=== PATIENT | female | born 1980 | race Caucasian/White ===

== ENCOUNTER 2025-07-17 01:01 | Emergency (ER) | payer SELFPAY ==
[2025-07-17 01:04] VITALS: BP 170/90; PULSE 91; TEMP 36.5; O2SAT 100; BMI 22.9
--- NOTE | 2025-07-17 01:45 | XR_ITS ---
The [address] [address] Patient Name: CHUCHO CARNEY MRN: [id number] date: 1980 Sex: F Assigned Patient Location: ER Current Patient Location: Accession/Order Number: [id number] Exam Date: 07/17/2025 02:00 Report Date: 07/17/2025 07:46 At the request of: MILAGRO SUAREZ MD Procedure: XR acute abdomen series ACUTE ABDOMEN SERIES WITH PA CHEST: CLINICAL HISTORY: constipation, thinks she has parasites COMPARISON: None The chest film shows no acute cardiopulmonary findings. Supine and upright views of the abdomen and pelvis demonstrate the stomach. Air and mild to moderate stool are present along the length of the colon, greater on the right. There is no small bowel dilatation, free air or air-fluid levels. No soft tissue masses or abnormal calcifications are seen. There is mild degenerative change of the lower lumbar spine and SI joints. XR/XR acute abdomen series IMPRESSION: NO ACUTE PLAIN FILM FINDINGS. Impression dictated by: Radha Keating M.D. 07/17/2025 7:46 AM Dictation Location: [place] [address] Electronically authenticated by: [id number] Y Date: 07/17/2025 07:46
--- NOTE | 2025-07-17 01:47 | ED.SKABFB1 ---
HPI - Skin/Abscess/Foreign Bdy General Chief complaint: Skin/Abscess/Foreign Body Stated complaint: POSS PARASITE Time Seen by Provider: 07/17/25 01:02 Source: patient Mode of arrival: walk-in History of Present Illness HPI narrative: 44-year-old female presents for evaluation of worms . The patient thinks that she has worms in her hands and on her ankles. She states it itches and when she scratches and opens up her skin white worms and little black bugs crawl out of her skin. She thinks that she has eggs in the back of her throat. She states that she took an uvin-cis-iqqygwu pinworm medication recently but does not think it helped her. She is not having any rectal itching. She denies any abdominal pain. She does admit to cocaine use. She states that she was recently in halfway for 6 months. She also states that she feels like she has worms in her eyes and when she puts Vaseline under her nose the worms come out onto paper if she places it under her nose. She recently finished her menstrual period and there were worms in her menstrual blood as well. She denies any abdominal pain but states she has not had a bowel movement in 2 weeks. She has not traveled outside of the country in over 10 years. Related Data Home Medications ?Medication ?Instructions ?Recorded ?Confirmed losartan 25 mg tablet 25 mg PO DAILY 07/17/25 07/17/25 Allergies Allergy/AdvReac Type Severity Reaction Status Date / Time nitrofurantoin (From Allergy Unknown Swelling Verified 07/17/25 01:09 Macrobid) of Lip/Tongue/Throat Review of Systems ROS Status of ROS 10 or more systems reviewed and unremarkable except as noted in history and below PFSH PFSH Social History Little interest or pleasure in doing things: not at all Feeling down, depressed, or hopeless: not at all Exam Narrative Exam Narrative: Vital signs and Nursing Notes reviewed: Afebrile with a normal pulse, blood pressure is elevated 170/90, she is not hypoxic with pulse ox of 100% on room air General: Awake, alert, oriented, no acute distress, this female picking at her skin HEENT: Normocephalic atraumatic, mucous membranes are moist and pink, eyes are clear, normal conjunctiva, vision is grossly intact, posterior pharynx is normal in appearance without any notable abnormalities Neck: Supple, no meningeal signs, no anterior or posterior cervical lymphadenopathy Chest: Lungs are clear to auscultation with good air entry, there is no wheezing rhonchi or rales appreciated no accessory muscle use, patient is speaking in complete sentences-no chest wall tenderness to palpation CVS: Regular rate and rhythm S1-S2, no murmurs rubs or gallops, pulses are brisk and equal bilaterally ABD: Soft, nondistended, nontender, no rebound guarding or rigidity, bowel sounds are normal, no pulsatile masses appreciated Extremities: Moving all extremities, no lower extremity tenderness or swelling noted, negative Homans' sign, pulses are brisk and equal bilaterally Skin: Patient's hands do not show any sign of infestation. She has dry skin around her fingernails, her her fingernails are chewed the skin on her hands is dry. She has several sores on the medial aspect of her ankles from her picking. There is no sign of any local cellulitis or infestation noted. He is adamant that she has a large warm on the right thenar eminence that has a tail that wraps into her thumb. Again I explained to her that there is no sign of any warm or other insect or infestation in this area. Neuro: No focal deficits Constitutional Vital Signs, click to edit/add: Last Vital Signs Temp 97.7 F 07/17/25 01:04 Pulse 91 H 07/17/25 01:04 Resp 18 07/17/25 01:04 BP 170/90 H 07/17/25 01:04 Pulse Ox 100 07/17/25 01:04 O2 Del Method Room Air 07/17/25 01:04 Course Vital Signs Vital signs: Vital Signs Temperature 97.7 F 07/17/25 01:04 Pulse Rate 91 H 07/17/25 01:04 Respiratory Rate 18 07/17/25 01:04 Blood Pressure 170/90 H 07/17/25 01:04 Pulse Oximetry 100 07/17/25 01:04 Oxygen Delivery Method Room Air 07/17/25 01:04 Temperature 97.7 F 07/17/25 01:04 Pulse Rate 91 H 07/17/25 01:04 Respiratory Rate 18 07/17/25 01:04 Blood Pressure 170/90 H 07/17/25 01:04 Pulse Oximetry 100 07/17/25 01:04 Oxygen Delivery Method Room Air 07/17/25 01:04 MDM - Skin/Abscess/Foreign Bdy MDM Narrative Medical decision making narrative: This 44-year-old female with a history of substance abuse including cocaine presents for evaluation of the sensation that she has worms underneath her fingernails with worm eggs in her throat and worms in her hands and ankle areas. She also thinks there were worms in her menstrual blood after recently having her period. Her physical exam is benign. I did examine her skin with a magnifying glass. She does have open areas where she has been picking at her skin without any local cellulitis or sign of any infestation. There is no sign of any scabies. She is somewhat anxious but cooperative. She have any rectal itching or burning. She does not have any burning in her vagina. She has no abdominal pain but states she has been constipated for the past 2 weeks. She is not having any nausea or vomiting. Her abdomen is soft. Vital signs are stable with an elevated blood pressure at 170/90. An x-ray was ordered of her chest and abdomen. She has a nonspecific bowel gas pattern with no free air but moderate amount of stool consistent with constipation and a normal chest x-ray with normal mediastinum, no acute pulmonary disease and normal cardiac borders. Urine drug screen is positive for cocaine and marijuana. Also is positive for nitrites and 10-20 white blood cells per high-power field consistent with a UTI. I read her the definition of formication in which people you are using certain drugs or having certain psychiatric issues have the sensation of insects or bugs crawling under their skin. She verbalizes understanding of this. I suggested that she discontinue cocaine use as this would help resolve the symptoms. She states that if she discontinued cocaine use many of her issues would be resolved and seems open to this conversation. She will be treated with Cipro and hydroxyzine for the skin discomfort and UTI. She will be discharged home with a prescription for Colace, Cipro and hydroxyzine. Lab Data Labs: Lab Results 07/17/25 Range/Units 01:55 Urine Color Yellow (YELLOW) Urine Clarity Clear (CLEAR) Urine pH 5.5 (5.0-9.0) Ur Specific [place] >=1.030 A (1.005-1.025) Urine Protein Trace (NEG/TRACE) mg/dL Urine Glucose (UA) Negative (NEGATIVE) mg/dL Urine Ketones Trace A (NEGATIVE) mg/dL Urine Occult Blood Trace-i (NEGATIVE) Urine Nitrite Positive A (NEGATIVE) Urine Bilirubin Negative (NEGATIVE) Urine Urobilinogen 1.0 (0.2-1.0) EU/dL Ur Leukocyte Esterase Small A (NEGATIVE) Urine RBC 0-2 (0-2) #/HPF Urine WBC 10-20 A (NONE SEEN) #/HPF Ur Squamous Epith Cells Few A (NONE/RARE) #/LPF Urine Crystals None seen (None Seen) #/HPF Urine Bacteria Large A (NONE SEEN) #/HPF Urine Casts None seen (NONE SEEN) #/LPF Urine Mucus Large A (NONE SEEN) Ur Culture Indicated? Yes-[facility] [place] Urine Opiates Screen Negative (NEGATIVE) Ur Buprenorphine Scrn Negative (NEGATIVE) Ur Oxycodone Screen Negative (NEGATIVE) Urine Methadone Screen Negative (NEGATIVE) Ur Barbiturates Screen Negative (NEGATIVE) U Tricyclic Antidepress Negative (NEGATIVE) Ur Phencyclidine Scrn Negative (NEGATIVE) Ur Amphetamines Screen Negative (NEGATIVE) U Methamphetamines Scrn Negative (NEGATIVE) U Benzodiazepines Scrn Negative (NEGATIVE) Urine Cocaine Screen Positive A (NEGATIVE) U Cannabinoids Screen Positive A (NEGATIVE) Discharge Plan Discharge Chief Complaint: Skin/Abscess/Foreign Body Clinical Impression: Formication, UTI (urinary tract infection), Constipation, Cocaine use Patient Disposition: Home, Self-Care Time of Disposition Decision: 02:20 Condition: Good Prescriptions / Home Meds: No Action losartan 25 mg tablet 25 mg PO DAILY Print Language: Montserratian Instructions: Constipation (ED), Urinary Tract Infection in Women (DC), Cocaine Use Disorder (ED) Referrals: Physician,Non-Staff, MD [Primary Care Provider] - 1 week
[2025-07-17 02:02] LABS: Glucose Urine UA NEGATIVE (NEGATIVE)
[2025-07-17 02:08] LABS: Cast Seen? NONE SEEN #/LPF (NONE SEEN); Crystals Seen? None Seen #/HPF (None Seen); Urine Culture Indicated YES-FRMC
[2025-07-17 02:10] LABS: Cannabinoid Screen Urine POSITIVE (NEGATIVE); Methamphetamines Screen Urine NEGATIVE (NEGATIVE); Tricyclic Antidepressant Urine NEGATIVE (NEGATIVE)
[2025-07-17] MEDS: HYDROXYZINE HCL 25 MG TABLET PO (02:28)
[2025-07-17] MEDS: CIPROFLOXACIN HCL 500 MG TABLET PO (02:28)
== END 2025-07-17 02:36 | disposition home or self-care (01) ==
PROVIDERS: Emergency Provider Emergency Medicine
DX: R20.2 Paresthesia of skin (principal); N39.0 Urinary tract infection, site not specified; K59.00 Constipation, unspecified; F14.90 Cocaine use, unspecified, uncomplicated
CPT/HCPCS: 74022; 80307; 81001; 87086; 87088; 87186; 99284

== ENCOUNTER 2025-08-09 14:46 | Emergency (ER) | payer OTHER, SELFPAY ==
--- OUTSIDE RECORDS SUMMARY | 2024-02-28 08:30 | XMS_ITS ---
Author Organization [facility] vices Address [address] [place] [id number] Care Team Providers Care Stamping Operator Name Role Phone LiborioJackelyn davis [phone] REASON FOR VISIT Periodic Exam Social History Sex Assigned At : Social History Observation Description Sex Assigned At Female Encounters Encounter Location Date Provider Diagnosis [facility] [address] [place], [place] [id number] 02/28/2024 Jackelyn Solis Plan Of Treatment No Information Progress Notes * Diane CARNEY LDOB: (45 yo F)Acc No.[id number]:02/28/2024 Patient:Diane JADE :?Jackelyn SolisYOLANDADOB:1980???Age:43 Y ???Sex:FemaleDate:4Phone:[phone]:[address] [place], [place] [id number] Subjective: * Chief Complaints: * 1 . Periodic Exam. * Medical History: Objective: * Vitals: Assessment: Plan: * Treatment: * Billing Information: * Visit Code: * Procedure Codes: * Electronic signature of Jackelyn Solis DMD on 08/09/2025 at 02:58 PM ESTSign off status: Pending * Provider: Eugenia Solis DMD Date: 0 02/28/2024 Generated for Printing/Faxing/eTransmitting on:?08/09/2025 02:58 PM EST
--- OUTSIDE RECORDS SUMMARY | 2024-04-14 19:00 | XMS_ITS | Continuity of Care Document ---
Author Organization [facility] Address [address] [place] [address] Phone Care Team Providers Care Motor And Generator Brush Maker Name Role Phone Yaima Andre Unavailable Unavailable Allergies, Adverse Reactions, Alerts Substance Reaction Status Criticality NITROFURANTOIN MACROCRYSTALLINE Active No Information nitrofurantoin Active No Informatio n Medications Medication Instructions Dosage Effective Dates (start - stop) Status Comments losartan 25 mg tablet take 1 tablet by o ral route every day 25 MG - Active clonidine HCl 0.1 mg tablet take 1 tablet by oral route 2 times every day 0.1 MG - Active Problems Condition Type Effective Dates (start - stop) Clini delmy Status Comments No Known Problems Procedures Procedure Date Acute Detox Head Cashier Acute Detox Head Cashier Acute Detox Head Cashier DRUG TEST PRSMV DIR OPT OBS URINE TEST Acute Detox Head Cashier Acute Detox Head Cashier Acute Detox Head Cashier Acute Detox Head Cashier Acute Detox Head Cashier RAPID STI Chalm/Gonorr/Trich OFFICE/OUTPATIENT VISIT, NEW DIAST BP 80-89 MM HG SYST BP >=130-139MM HG MED LIST DOCD IN [facility] RVW MEDS BY RX/DR IN [facility] PT TOBACCO USE DONE RCVD TLK Pos clin depres scrn f/u doc ROUTINE VENIPUNCTURE DRUG TEST PRSMV DIR OPT OBS Acute Detox Head Cashier ROUTINE VENIPUNCTURE DRUG TEST PRSMV DIR OPT OBS URINE TEST Acute Detox Head Cashier Acute Detox Head Cashier Acute Detox Head Cashier Acute Detox Head Cashier DRUG TEST PRSMV DIR OPT OBS Acute Detox Head Cashier Acute Detox Head Cashier ROUTINE VENIPUNCTURE DRUG TEST PRSMV DIR OPT OBS ASSAY OF BREATH ETHANOL URINE TEST Acute Detox Head Cashier Alcohol and/or drug services- Acute Deto x Alcohol and/or drug services- Acute Deto x Alcohol and/or drug services- Acute Deto x Alcohol and/or drug services- Acute Deto x Alcohol and/or drug services- Acute Deto x DRUG TEST PRSMV DIR OPT OBS URINE TEST Alcohol and/or drug services- Acute Deto x Advance Directives Directive Yes / No Effective Date File Name No Information Encounters Encounter Description Practice Location Reason(s) For Visit Diagnoses Date Provider Providers Copied on Encounter [facility], [address] [place] [address], [id number] , [place] tel: [phone] [facility] No Information 4 Thai Erwin. [address] [place] [address], [id number] , [place]. tel: [phone] [facility], [address] [place] [address], [id number] , tel: [phone] [facility] No Information 4 Klidas Yaima. [address], [place], [id number] , [place]. tel: [phone] [facility], [address], [place], [id number] , [place] tel: [phone] [facility] No Information 4 Klidas Yaima. [address], [place], [id number] , [place]. tel: [phone] [facility], [address], [place], [id number] , [place] tel: [phone] [facility] No Information 4 Klidas Yaima. [address], [place], [id number] , [place]. tel: [phone] [facility], [address] [place] [address], [id number] , [place] tel: [phone] [facility] No Information 4 Klidas Yaima. [address], [place], [id number] , [place]. tel: [phone] [facility], [address], [place], [id number] , [place] tel: [phone] [facility] No Information 4 Klidas Yaima. [address] [place] [address], [id number] , [place]. tel: [phone] [facility], [address], [place], [id number] , [place] tel: [phone] [facility] No Information 4 Klidas Yaima. [address] [place] [address], [id number] , [place]. tel: [phone] [facility], [address] [place] [address], [id number] , [place] tel: [phone] [facility] No Information 4 Kristyn Urban. [address] [place] [address], [id number], [place]. tel: [phone] OFFICE/OUTPA TIENT VISIT, [facility], [address], [place], [id number] , [place] tel: [phone] [facility] STI screening (chief complaint)v aginal discharge/i tching (chief complaint) Alcohol dependence with withdrawal, uncomplicatedCocaine dependence with withdrawalVaginal odor 4 Ko Jhaveri. [address], [place], [id number] , [place]. tel: [phone] [facility], [address], [place], [id number] , [place] tel: [phone] [facility] No Information 4 Klidas Yaima. [address] [place] [address], [id number] , [place]. tel: [phone] [facility], [address], [place], [id number] , [place] tel: [phone] [facility] No Information 4 Klidas Yaima. [address] [place] [address], [id number] , [place]. tel: [phone] [facility], [address], [place], [id number] , [place] tel: [phone] [facility] No Information 4 Klidas Yaima. [address], [place], [id number] , [place]. tel: [phone] [facility], [address], [place], [id number] , [place] tel: [phone] [facility] No Information 0- 4 Klidas Yaima. [address] [place] [address], [id number] , [place]. tel: [phone] [facility], [address] [place] [address], [id number] , [place] tel: [phone] [facility] No Information 0 4 Klidas Yaima. [address] [place] [address] [place], [id number] , [place]. tel: [phone] [facility], [address], [place], [id number] , [place] tel: [phone] [facility] No Information Apr-0 8-202 4 Klidas Yaima. [address], [place], [id number] , [place]. tel: [phone] [facility], [address], [place], [id number] , [place] tel: [phone] [facility] No Information Apr-0 7-202 4 Klidas Yaima. [address], [place], [id number] , [place]. tel: [phone] [facility], [address], [place], [id number] , [place] tel: [phone] [facility] No Information Apr-0 6-202 4 Klidas Yaima. [address], [place], [id number] , [place]. tel: [phone] [facility], [address], [place], [id number] , [place] tel: [phone] [facility] Alcohol dependence with withdrawal, uncomplicated Mar-2 4-201 9 Visci DO Adrian. [address], [place], [id number] , [place]. tel: [phone] [facility], [address], [place], [id number] , [place] tel: [phone] [facility] Alcohol dependence with withdrawal, uncomplicated Mar-2 3-201 9 Visci DO Adrian. [address], [place], [id number] , [place]. tel: [phone] [facility], [address], [place], [id number] , [place] tel: [phone] [facility] Alcohol dependence with withdrawal, uncomplicated Mar-2 2-201 9 Visci DO Adrian. [address], [place], [id number] , [place]. tel: [phone] [facility], [address], [place], [id number] , [place] tel: [phone] [facility] Alcohol dependence with withdrawal, uncomplicated Dec-2 9 Viscdeidre Cerna. [address], [place], [id number] , [place]. tel: [phone] [facility], [address], [place], [id number] , [place] tel: [phone] [facility] Alcohol dependence with withdrawal, uncomplicated Dec-2 0-201 9 Elias Cerna. [address], [place], [id number] , [place]. tel: [phone] [facility], [address], [place], [id number] , [place] tel: [phone] [facility] alcohol dependence (chief complaint) Alcohol dependence with withdrawal, uncomplicated Dec- 9 Toni Bender. [address], [place], [id number] , [place]. tel: [phone] [facility], [address], [place], [id number] , [place] tel: [phone] [facility] Alcohol dependence with withdrawal, uncomplicatedEncount er for test, result negative 9 [facility] [address], [place], [id number] , [place]. tel: [phone] Family History Family Member Type Diagnosis Age At Onset Father Problem Hypertension Mother Problem Alcoholism Father Problem Hypercholesterolemia Problem (finding) Family history of malignant neoplasm of bone Brother Problem Alcoholism Problem (finding) Family history of cance r of colon Mother Problem Depression Payers Payer name Insurance type Covered constitution party ID Authoriza tilamin(s) [employer] M edicaid 0223 [id number] Social History Type Description Quantity Date Captured Comments Sex Female Smoking Status No Information Sexual Orientation Straight or heterosexual February Gender Identity Female Chief Complaint And Reason For Visit No Information Reason For Referral Reason For Referral No Information Plan Of Treatment Date Type Action Status Goal HPV. Due on due Goal PRAPARE ASSESSMENT. Due on M due Goal Tdap Vaccine. Due on 2023 due Goal Tdap. Due on due Goal Influenza vaccine. Due on Ma due Goal RLP. Due on due Goal Hepatitis C screening. Due o n due Goal Unhealthy drug use screening . Due on due Goal Lipid panel. Due on due Goal Depression screening. Due on due Goal Tobacco cessation counseling completed History Of Present Illness Encounter Date Complaint History Of Prese nt Illness vaginal discharge/itching Her sy mptoms began 5 Days ago. Presently the client is experiencing vaginal itching, vaginal irritation, vaginal odor and vaginal discharge.The client is premenopausal. Last menstrual period was 02/07/2024. Relevant factors include new partner. Additional information: 1:55 Detox nurse notifed pt rapid is negative and nuswab will be sent for BV and yeast. Elva POST. STI screening Pt is current cl ient of [facility] detox center. She reported to staff that she had unprotected sex about 8 days ago and now has an odor. Pt agreeable to rapid sti testing for gonorrhea, chlamydia and trich. She declines bloodwork for HIV, HCV and syphilis at this time. Elva POST alcohol dependence 38 year old f juwan checked in to detox today and reports last consuming alcohol this morning. She typically drinks 3/4 bottle of rum or vodka per day and has been doing so for 2 years. She has attended a detox in Jun 2016.surgical hx- noneallergies- nonemeds- duloxetine, lisinopriltobacco- 1 ppdplans upon completing detox- open to anything. Functional Status Date Functional Assessmen t No Information Instructions Date Instruction Additional Infor mation No Information Assessments Type Assessment Date No Information Patient Care Teams Name Effective Dates (start - stop) Status Members No Information
[2025-08-09 14:52] VITALS: BP 171/99; PULSE 95; TEMP 37.1; O2SAT 100; BMI 22.6
--- OUTSIDE RECORDS SUMMARY | 2025-08-09 14:58 | XMS_ITS | Clinical Summary ---
Author Organization [employer] tem Address [id number] [address] [place] [address] Care Team Providers Care It Account Manager Name Role Phone No Pcp, No Pcp Primary Care Provider Unavailabl e Allergies Active AllergyReactionsCriticalityNoted DateCommentsNitrofurantoin Monohyd/M-EqmymMqvgcxwr86/14/2023 Medications MedicationSigDispense QuantityRefillsLast FilledStart DateEnd DateStatus ibuprofen (MOTRIN) 600 mg tablet Take 1 tablet (600 mg total) by mouth every 6 (six) hours as needed for pain. 30 tablet 5Active acetaminophen (TYLENOL EXTRA STRENGTH) 500 mg tablet Take 2 tablets (1,000 mg total) by mouth every 6 (six) hours as needed for pain or fever. 30 tablet 5Active Active Problems ProblemNoted DateDiagnosed DateVaginal vzovznqh80/02/2025History of depression 10/09/2024History of alcohol abuse10/09/2024History of drug abuse10/09/2024 Primary /02/2025Left elbow pain06/06/20244226Szeuaggsimhc76/30/2024 Oinarojrvhupcu56/29/8426Opzbqnu59/29/7380Aelcghembaau09/29/3670Nnnykc23/29/2024 Arm mshfjazo87/28/2023Left-sided wsnbeejj93/27/2023Hematuria, gross03/01/2022 Overview (03/01/2022): ==== 03/01/2022 ==== painless gross hematuria. Twenty-two year history of smoking. At most 1.5 pack per day. Plan: hematuria evaluation. Noncontrast CT renal bladder ultrasound cystoscopy bladder irrigation [employer] [facility] bladder solution retrograde pyelogram Assessment & Plan (03/01/2022 4:39 PM EDT): We reviewed today than any abnormality of the urinary tract including cancer, medical renal disease, infection, calculi, bleeding the diathesis, idiopathic, benign familial, BPH, or congenital anomaly could account for hematuria, and hence the importance of evaluation. The patient understands that all studies ordered must be completed in order to fully evaluate the urinary system. The patient acknowledges this and agrees. Recurrent urinary tract qrqmeethj87/02/2022Moderate episode of recurrent major depressive gvijdqop42/18/2022lcohol ilihgbenmp50/30/2613Kugmivznvxx05/14/2021 Bjnyyza7509/22/2020 Overview (03/01/2022): ==== 03/01/2022 ==== did have E coli UTI. Will perform cystoscopy [facility] bladder solution. Probable cranberry supplementation self start therapy Macrobid. ====12/07/21====s/p cysto 12/27/20. Estimates 3 UTIs since then. Currently symptomatic but UA is neg. Will try Pyridium ==== 11/24/2020 ==== last urine was positive for E coli. Currently feels like she may have UTI. [place] urine for culture. Treat based on cultures. [facility] be [facility]. Potential bladder irrigation. ====09/22/20====We will send urine for microscopic exam and culture. To be safe, we will start her on Bactrim. Assessment & Plan (12/07/2021 10:47 AM EST): She admits that her symptoms may also be related to BV. She has had good response with Metrogel in the past. She is not able to get in with certified tower climber right away and is requesting prescription for me today.I did send in prescription but advised that she check in with certified tower climber. She is also requesting that we send her urine for gonorrhea/chlamydia. To be safe, I will also send for culture. We will notify her of all the results via citizenmade. Assessment & Plan (09/22/2020 12:14 PM EST): Of note, she is menstruating. If UA does dip for blood but negative for infection, we may just recheck in the short-term. Further management will be based on test results and how she does. If symptoms persist, we will need to set her up for cystoscopy/[facility] instillation History of kidney qcdeiq8409/22/2020 Overview (03/01/2022): ==== 03/01/2022 ==== will see what the noncontrast CT demonstrates ====12/07/21==== recent left-sided back pain. We will check a KUB. ==== 11/24/2020 ==== no recent renal colic. Most recent KUB reviewed no stones noted. Report states same as well. ====09/22/20==== she recently has had some left lower quadrant pain. Reports a history kidney stones. To be safe, we will check a KUB Assessment & Plan (12/07/2021 10:48 AM EST): I will notify her of the results via [employer]. If pain persists, we could pursue additional imaging with an ultrasound or CT. If imaging looks okay and she is doing well, we will see her back in 6 months Assessment & Plan (09/22/2020 12:15 PM EST): I told her to go to the ER if fever returns or symptoms progress Resolved Problems ProblemNoted DateDiagnosed DateResolved DateRUQ abdominal pain10/09/2024 10/10/2024 Immunizations ImmunizationAdministration DatesNext DueInfluenza, Im Trivalent Preservative 09/02/2012Influenza, Injectable, Mdck, Preservative Free, Quad10/25/2017 Influenza, Injectable, quadrivalent (PF)12/19/2020,08/08/2018Pneumococcal Mdbulwwqbjuegg62/14/2021 Family History Medical HistoryRelationNameCommentsHyperlipidemiaFatherHypertensionFatherRheum arthritisFatherCancerMotherintestinalColon cancerMotherDiverticulosisMother CancerSisterskin cancerBreast cancerNeg HxRelationNameStatusCommentsFatherAlive MotherAliveSisterAliveSonMichael KennedyAlive Social History Tobacco UseTypesPacks/DayYears UsedDateSmoking Tobacco: FormerCigarettes0.322 Smokeless Tobacco: Never Tobacco Cessation:Counseling Given: Not Answered Comments:not interested in quitting Alcohol UseStandard Drinks/WeekCommentsNot Currently0 (1 standard drink = 0.6 oz pure alcohol)occasion mixed drinksAHC UtilitiesAnswerDate RecordedIn the past 12 months has the [employer], gas, oil, or water [employer] threatened to shut off services in your home?No10/09/2024Social Connection and Isolation PanelAnswer Date RecordedIn a typical week, how many times do you talk on the phone with family, friends, or neighbors?Once a week10/09/2024How often do you get together with friends or relatives?Once a week10/09/2024How often do you attend worship or gnosticism services?Never10/09/2024Do you belong to any clubs or organizations such as worship groups, unions, fraternal or athletic groups, or school groups? Yes10/09/2024How often do you attend meetings of the clubs or organizations you belong to?More than 4 times per year10/09/2024re you , , , , never , or living with a partner?Mkjtzulr53/02/2025 AUDIT-CAnswerDate RecordedQ1: How often do you have a drink containing alcohol? 2-4 times a month10/09/2024Q2: How many drinks containing alcohol do you have on a typical day when you are drinking?3 or Q3: How often do you have six or more drinks on one occasion?Never10/09/2024Overall Financial Resource Strain (CARDIA)AnswerDate RecordedHow hard is it for you to pay for the very basics like food, housing, medical care, and heating?Very hard10/09/2024PHQ-2 AnswerDate RecordedTotal Kvgcb051Fincedar city hospital [place] of Occupational Health - Occupational Stress QuestionnaireAnswerDate RecordedDo you feel stress - tense, restless, nervous, or anxious, or unable to sleep at night because your mind is troubled all the time - these days?Rather much10/09/2024Exercise Vital SignAnswerDate RecordedOn average, how many days per week do you engage in moderate to strenuous exercise (like a brisk walk)?3 days10/09/2024On average, how many minutes do you engage in exercise at this level?60 min10/09/2024PRAPARE - TransportationAnswerDate RecordedIn the past 12 months, has lack of transportation kept you from medical appointments or from getting medications?No 10/09/2024In the past 12 months, has lack of transportation kept you from meetings, work, or from getting things needed for daily living?No10/09/2024 Housing InstabilityAnswerDate RecordedAre you worried or concerned that in the next two months you may not have stable housing that you own, rent or stay in as a part of a household?No10/09/2024hildcareAnswerDate RecordedDo problems getting child care teacher make it difficult for you to work or study?No10/09/2024 EmploymentAnswerDate RecordedDo you need help finding a local career center and/or a training program?No10/09/2024Hunger ScreeningAnswerDate RecordedWithin the past 12 months we worried whether our food would run out before we got money to buy more.Never True10/09/2024Within the past 12 months the food we bought just didn't last and we didn't have money to get more.Never True10/09/2024 Purpose - LifeAnswerDate RecordedI have a purpose and direction in my life.Agree 10/09/2024EducationAnswerDate RecordedWhat is the highest level of school you have completed or the highest degree you have received?Associate degree: occupational, technical, or vocational theaauk4304/11/2022CommentsNoSex and Gender InformationValueDate RecordedSex Assigned at BirthNot on fileLegal DrvHrvjah89/06/2015 11:26 AM EDTGender XzzbxamaZivimy57/02/2025 5:33 PM EST Sexual GvjaufwlbjmEqgifgkb05/02/2025 5:33 PM EST Last Filed Vital Signs Vital SignReadingTime TakenCommentsBlood Izahbyjy280/8810/24/2024 9:25 AM EST Epgdo930010/24/2024 9:25 AM RZIWrrikwtburx80.8 ??C (98.2 ??F)10/10/2024 12:02 PM ESTRespiratory Wmck859710/10/2024 12:02 PM ESTOxygen Nygyddpdca39%10/10/2024 1:00 PM ESTInhaled Oxygen Concentration--Bwohsy05.8 kg (156 lb)10/24/2024 9:25 AM EST Uttsik165.6 cm (5' 6 )10/24/2024 9:25 AM ESTBody Mass Index25.18010/24/2024 9:25 AM EST Plan of Treatment Health MaintenanceDue DateLast DoneCommentsAdult BMI Follow Up Plan1999 DTaP,Tdap and Td Vaccines (1 - Tdap)2000Pap Smear2002Influenza Ryqxzef11/, 08/08/2018, 10/25/2017, Additional history exists Depression Gltjoyaji95/dult BMI Tmisjypqx13/ Tobacco Tbdtrirbo26/2871Eysfgvate95/23/202604/, 01/29/2024, 10/18/2022 Goals GoalPatient Goal TypeAssociated ProblemsRecent ProgressPatient-Stated?Author home with self care Monae Aguayo, REBECCA Note: Evaluation of progress towards goal: Home with self care. Medical Devices Not on file Procedures Procedure NamePriorityDate/TimeAssociated DiagnosisCommentsMAMM DIAGNOSTIC BILATERAL W AZDYwgsfar12/23/2024 3:00 PM EDT Breast lump on left side at 1 o'clock position from Last 3 Months or Most Recently Relevant to Health Maintenance Results * Mammography diagnostic bilateral with CAD (01/29/2024 3:00 PM EDT)Anatomical RegionLateralityModalityBreastBilateralMammographySpecimen (Source)Anatomical Location / LateralityCollection Method / VolumeCollection TimeReceived Time 01/29/2024 3:01 PM EDT Narrative 01/29/2024 3:26 PM EDT EXAM: MAMM DIAGNOSTIC BILATERAL W CAD, 01/29/2024 2:47 PM CLINICAL INDICATIONS: Breast lump on left side at 1 o'clock position, COMPARISON: Baseline study 2022 TECHNIQUE: Bilateral digital tomosynthesis MLO and CC views of the breasts were obtained, with creation of synthetic 2D views. Computer aided detection was utilized. FINDINGS: The breasts are heterogeneously dense, which may obscure small masses. ?? A radiopaque marker is placed over the area of palpable concern. ??There is no underlying mammographic abnormality. ??Targeted ultrasound will be performed at this location. There are no suspicious masses, calcifications, or areas of architectural distortions. Bilateral Breast Ultrasound, Limited TECHNIQUE: Multiple real-time lee-scale images of the bilateral breasts were performed. Color Doppler was utilized to assess vascular flow. FINDINGS: There is no focal mass, architectural distortion or abnormal vascularity visualized. COMBINED ??IMPRESSION: No mammographic evidence of malignancy. BI-RADS: BI-RADS 1 - Negative Recommendation: Routine screening mammogram in 1 year Patient was given the results before leaving the department. Finalized by Rudi Amanda DO on 01/29/2024 3:26 PM 1 c MAMM 1 YR Procedure Note Rudi Amanda DO - 01/29/2024 EXAM: MAMM DIAGNOSTIC BILATERAL W CAD, 01/29/2024 2:47 PM CLINICAL INDICATIONS: Breast lump on left side at 1 o'clock position, COMPARISON: Baseline study 2022 TECHNIQUE: Bilateral digital tomosynthesis MLO and CC views of the breasts wereobtained, with creation of synthetic 2D views. Computer aided detectionwas utilized. FINDINGS: The breasts are heterogeneously dense, which may obscure small masses. A radiopaque marker is placed over the area of palpable concern. There isno underlying mammographic abnormality. Targeted ultrasound will beperformed at this location. There are no suspicious masses, calcifications, or areas of architectural distortions. Bilateral Breast Ultrasound, Limited TECHNIQUE: Multiple real-time lee-scale images of the bilateral breastswere performed. Color Doppler was utilized to assess vascular flow. FINDINGS: There is no focal mass, architectural distortion or abnormal vascularity visualized. COMBINED IMPRESSION: No mammographic evidence of malignancy. BI-RADS: BI-RADS 1 - Negative Recommendation: Routine screening mammogram in 1 year Patient was given the results before leaving the department. Finalized by Rudi Amanda DO on 01/29/2024 3:26 PM 1 c MAMM 1 YR Authorizing ProviderResult TypeResult Statusama Sandoval DRILL PRESS SET UP OPERATOR RADIAL-CNPIMG MAMMOGRAPHY ORDERABLESFinal Result from Last 3 Months or Most Recently Relevant to Health Maintenance Insurance * Guarantor: COLIN ASCENCIO COAccount TypeRelation to PatientDate of BirthPhone Billing AddressCorporateOther [address] [place] [address] Advance Directives * Full Code (Latest Code Status on File) Date ActivatedDate InactivatedComments10/09/2024 1:19 AM10/10/2024 6:16 PM * Full Code Date ActivatedDate InactivatedComments06/05/2024 4:55 PM06/13/2024 5:57 PM * Full Code Date ActivatedDate InactivatedComments12/04/2022 7:09 AM12/05/2022 7:15 PM * Full Code Date ActivatedDate InactivatedComments02/04/2021 9:30 PM02/07/2021 5:07 PM * Full Code Date ActivatedDate InactivatedComments12/19/2020 3:55 PM12/21/2020 4:36 PM Care Teams Team MemberRelationshipSpecialtyStart DateEnd Date No Pcp, [place] [address] [facility]
--- OUTSIDE RECORDS SUMMARY | 2025-08-09 14:58 | XMS_ITS | Clinical Summary ---
Author Organization [facility] Address [address], [address] [place] [address] Care Team Providers Care Scientist Electronics Name Role Phone Unavailable Primary Care Provider Unavailabl e Allergies No known active allergies Medications MedicationSigDispense QuantityRefillsLast FilledStart DateEnd DateStatus naproxen sodium (ANAPROX DS) 550 MG tablet Take 1 tablet by mouth 2 times daily (with meals) for 10 days. 20 tablet ctive Social History Tobacco UseTypesPacks/DayYears UsedDateSmoking Tobacco: Every DayCigarettes Alcohol UseStandard Drinks/WeekCommentsYes0 (1 standard drink = 0.6 oz pure alcohol)3x weekly - wine 4 glassesCommentsNoSex and Gender Information ValueDate RecordedSex Assigned at BirthNot on fileLegal PqkBnyjsr35/09/2013 5:55 AM ESTGender IdentityNot on fileSexual OrientationNot on file Last Filed Vital Signs Vital SignReadingTime TakenCommentsBlood Jwgkggvk298/8410/07/2012 1:23 PM EST Bwmfp385810/07/2012 1:23 PM LHECiofahtbnel22.9 ??C (98.4 ??F)10/07/2012 1:23 PM ESTRespiratory Earm1090 1:23 PM ESTOxygen Lmtmerdrpm25%10/07/2012 1:23 PM ESTInhaled Oxygen Concentration--Efmfzi19.9 kg (132 lb)10/07/2012 1:26 PM EST Rzikje634.6 cm (5' 6 )10/07/2012 1:26 PM ESTBody Mass Index21.311 1:26 PM EST Plan of Treatment Health MaintenanceDue DateLast DoneCommentsDTaP/Tdap/Td vaccine (1 - Tdap) 2000Flu vaccine (#1)05/08/2025OVID-19 Vaccine (1 - season) 2025Polio vaccineAged OutNo longer eligible based on patient's age to complete this topic Additional Health Concerns InfectionOnset DateLast IndicatedESBL (Extended Spectrum Beta Lactamase) / Insurance Advance Directives TypeDate RecordedPatient RepresentativeExplanationACP-Advance Directive10/11/2012 10:07 PMACP-Advance Directive01/12/2012 9:45 AMACP-Advance Directive01/08/2012 7:50 PM
--- OUTSIDE RECORDS SUMMARY | 2025-08-09 14:58 | XMS_ITS | Encounter Summary ---
Author Organization [facility] Address [address] [place] [address] Care Team Providers Care Chauffeur [employer] Name Role Phone Candida Miller MD Primary Care Provider [phone] Encounter Details DateTypeDepartmentCare Team (Latest Contact Info)Jwhvspadins70/02/2025Travel Social History Tobacco UseTypesPacks/DayYears UsedDateSmoking Tobacco: Never Assessed CommentsUnknownSex and Gender InformationValueDate RecordedSex Assigned at Not on fileLegal PvdKhikpg37/15/2023 7:46 PM EDTGender IdentityNot on fileSexual OrientationNot on filedocumented as of this encounter Plan of Treatment Not on file documented as of this encounter Visit Diagnoses Not on filedocumented in this encounter Care Teams Team MemberRelationshipSpecialtyStart DateEnd Date Candida Miller MD [address] [place] [address] PCP - GeneralFamily Medicine02/13/23documented as of this encounter
--- OUTSIDE RECORDS SUMMARY | 2025-08-09 14:58 | XMS_ITS | Patient Health Record ---
Author Organization [facility] [place] Address [address] [place] [address] Care Team Providers Care Wall Covering Contractor Name Role Phone None, Unknown or Primary Care Provider Unavailab le Reason For Referral No Information Plan Of Treatment Pending Test Test Name Order Date XR Hip LT AP and Lat * 10/17/2022 Insurance Providers Payer Name Payer Address Payer Phone Subscriber Number Group Number Insured Name Patient Relationship to Insured Coverage Start Date Coverage End Date [employer] [address] [place] [id number] Donya Foleyelf - patient is the [id number] 2022
--- OUTSIDE RECORDS SUMMARY | 2025-08-09 14:58 | XMS_ITS | Clinical Summary ---
Author Organization [facility] Address [address] [place] [address] Care Team Providers Care Vp Cardiovascular Name Role Phone Candida Miller MD Primary Care Provider [phone] Encounters DateTypeDepartmentCare EbghRhihaulabym46/02/2025Travelfrom Last 3 Months Social History Tobacco UseTypesPacks/DayYears UsedDateSmoking Tobacco: Never Assessed CommentsUnknownSex and Gender InformationValueDate RecordedSex Assigned at Not on fileLegal KzdNnfest55/15/2023 7:46 PM EDTGender IdentityNot on fileSexual OrientationNot on file Last Filed Vital Signs Vital SignReadingTime TakenCommentsBlood Ffyklrci613/8006 12:00 PM EDT Pulse--Temperature--Respiratory Rate--Oxygen Saturation--Inhaled Oxygen Concentration--Atihzy99.4 kg (131 lb)05/05/2019 12:00 PM FUNJajcxs636.6 cm (5' 6 )05/05/2019 12:00 PM EDTBody Mass Index21.14005/05/2019 12:00 PM EDT Plan of Treatment Health MaintenanceDue DateLast DoneCommentsMMR Vaccines (1 of 1 - Standard series)1982DTaP/Tdap/Td Vaccines (1 - Tdap)1988Varicella Vaccines (1 of 2 - 13+ 2-dose series)1994Hepatitis B Vaccines (1 of 3 - 19+ 3-dose series)2000Pneumococcal Vaccine: Pediatrics (0 to 5 Years) and At-Risk Patients (6 to 64 Years) (1 of 2 - PCV)2000Pap Smear2002HPV Vaccines (1 - 3-dose SCDM series)2008Cervical Cancer Bdatlincl56/29/2024HPV/Cotest Mammogram/, 3COVID-19 Vaccine ( season)2025Influenza Vaccine (#1)/, 08/08/2018, 10/25/2017, Additional history existsHIB VaccinesAged OutNo longer eligible based on patient's age to complete this topicHepatitis A VaccinesAged OutNo longer eligible based on patient's age to complete this topicIPV Vaccines Aged OutNo longer eligible based on patient's age to complete this topic Meningococcal B VaccineAged OutNo longer eligible based on patient's age to complete this topicMeningococcal VaccineAged OutNo longer eligible based on patient's age to complete this topicRotavirus VaccinesAged OutNo longer eligible based on patient's age to complete this topic Procedures Procedure NamePriorityDate/TimeAssociated DiagnosisCommentsQ - THINPREP(R) TIS W/RFL HPV MRNA E6/V3Izjycpm17/29/2019 from Last 3 Months or Most Recently Relevant to Health Maintenance Results * Q - THINPREP(R) TIS W/RFL HPV MRNA E6/E7 (05/05/2019)ComponentValueRef Range Test MethodAnalysis TimePerformed AtPathologist SignatureCLINICAL INFORMATION: None givenNOMS LEGACY EXTERNAL LABLMP:None givenN[facility]S LEGACY EXTERNAL LABPREV. PAP:None givenN[facility] LE[facility] EXTERNAL LABPREV. BX:None given[facility] LABSOURCE:None givenN[facility] EXTERNAL LABSTATEMENT OF ADEQUACY:SEE NOTENOMS LEGACY EXTERNAL LABComment: Satisfactory for evaluation. Endocervical/transformation zone component present. INTERPRETATION/RESULT:Negative for intraepithelial lesion or malignancy.[facility] LABCOMMENT:SEE NOTENOMS LEGACY EXTERNAL LABComment: This case could not be evaluated with computer assisted technology. The slide was manually screened according to routine procedures. CRAFT SUPERINTENDENT:SEE NOTENOMS LEGACY EXTERNAL LABComment: BGG, SCT(ASCP) CT screening location: [facility] [address] [place] [address], [place] [address]. COMMENTSEE NOTENOMS LEGACY EXTERNAL LABComment: EXPLANATORY NOTE: The Pap is a screening test for cervical cancer. It is not a diagnostic test and is subject to false negative and false positive results. It is most reliable when a satisfactory sample, regularly obtained, is submitted with relevant clinical findings and history, and when the Pap result is evaluated along with historic and current clinical information. Specimen (Source)Anatomical Location / LateralityCollection Method / Volume Collection TimeReceived Time05/05/2019 Narrative Authorizing ProviderResult TypeResult StatusValeriglen Jensen CNMECW LABSFinal ResultPerforming OrganizationAddressCity/State/ZIP CodePhone Number [facility] from Last 3 Months or Most Recently Relevant to Health Maintenance Insurance Care Teams Team MemberRelationshipSpecialtyStart DateEnd Date Candida Miller MD [address] [place] [address] PCP - GeneralFamily Medicine02/13/23
--- NOTE | 2025-08-09 15:07 | ED.GENADUL1 ---
HPI HPI - General Adult General Chief complaint: Skin/Abscess/Foreign Body Stated complaint: BOIL ON THE LEG EYEAR INFECTION Time Seen by Provider: 08/09/25 14:55 Source: patient Mode of arrival: walk-in Limitations: no limitations History of Present Illness HPI narrative: Patient is a 45-year-old female presents to the ER with concerns of multiple skin sores and infections. Patient notes for the past 2 to 3 days she has been getting a larger boil on her left gluteal crease. She denies a prior history of staph infections or MRSA. She denies any chest pain or shortness of breath. She denies any history of diabetes. Patient states she has been getting small scabs where she has been picking with her fingers to her lower ankles and forearms. She had her left ear pierced through the antihelix and noticed redness the piercing was removed and her friend tried to drain some infection there I know that wasn't the right thing to do. . Patient denies any fever or chills. She denies any drainage or discharge from the left buttock boil but states this is her primary concern given tenderness where she tries to sit. She denies any chance of and appears in no distress at bedside. Onset (ago): day(s) (2- 3days ) Related Data Home Medications ?Medication ?Instructions ?Recorded ?Confirmed losartan 25 mg tablet 25 mg PO DAILY 07/17/25 08/09/25 Previous Rx's ?Medication ?Instructions ?Recorded doxycycline hyclate 100 mg capsule 100 mg PO BID 10 days #20 caps 08/09/25 ibuprofen 600 mg tablet 600 mg PO TID PRN pain #30 tabs 08/09/25 mupirocin calcium 2 % topical cream 1 applic topical BID #30 grams 08/09/25 Allergies Allergy/AdvReac Type Severity Reaction Status Date / Time nitrofurantoin (From Allergy Unknown Swelling Verified 08/09/25 14:58 Macrobid) of Lip/Tongue/Throat Opioid HPI Opioid Management Most Recent Opioid Data: Last Pain Scale 8 Today, 15:00 Last MAR Pain Assessment Today, 15:12 Ur Phencyclidine Scrn, (NEGATIVE) Negative 07/17/25, 01:55 Review of Systems ROS Constitutional Denies: fever or chills Eyes Denies: change in vision Ears, nose, mouth, and throat Denies: throat pain or neck pain Cardiovascular Denies: chest pain or palpitations Respiratory Denies: shortness of breath, cough or pain on inspiration Gastrointestinal Denies: abdominal pain, nausea, vomiting or diarrhea Genitourinary Reports: other (Patient denies chance of ); Denies: painful urination Musculoskeletal Denies: back pain, neck pain or other Integumentary/Breast Reports: redness, skin tenderness (abscess) and sores Neurological Denies: headache or numbness in extremities Psychiatric Denies: anxiety Hematologic/Lymphatic Denies: easy bruising PFSH PFSH Social History Little interest or pleasure in doing things: not at all Feeling down, depressed, or hopeless: not at all Exam Narrative Exam Narrative: Nurse's notes and vital signs reviewed and patient is not hypoxic. General: The patient appears well and in no apparent distress. Patient is resting comfortably in cart. Skin: Warm, dry, no pallor noted. Patient has multiple scabbed sores noted around the bilateral ankles forearms and left ear from likely picking left ear has evidence of prior piercing no active drainage or discharge slight erythema of the antihelix with no significant swelling or evidence of spreading cellulitis to the face or posterior/mastoid region. The left gluteal fold has a notable area of erythema approximately 3 cm in dimension with fluctuant center consistent with soft tissue abscess with surrounding cellulitis that appears like a halo. No visible extension into the groin folds. Head: Normocephalic, atraumatic Neck: Supple, trachea midline, no tenderness, no lymphadenopathy Ears, nose, mouth, and throat: TMs are clear, normal light reflex, oral mucosa is moist, no posterior oropharynx erythema or hypertrophy, uvula is midline. No auricle or tragal tenderness on manipulation other than scabbing to the left antihelix from prior piercing, no evidence of abscess formation or cellulitis Cardiovascular: Regular rate and rhythm Respiratory: Patient is in no distress, no accessory muscle use, lungs are clear to auscultation, no wheezing, rales, or rhonchi. Chest wall: No tenderness Musculoskeletal: Normal ROM, no tenderness, no swelling GI: Normal bowel sounds, no tenderness to palpation, no masses appreciated. No rebound, guarding, or rigidity noted. Neurological: Alert and oriented ?4 Psychiatric: Cooperative Constitutional Vital Signs, click to edit/add: Last Vital Signs Temp 98.7 F 11/02/25 14:52 Pulse 95 H 08/09/25 14:52 Resp 12 08/09/25 14:52 BP 171/99 H 08/09/25 14:52 Pulse Ox 100 08/09/25 14:52 O2 Del Method Room Air 08/09/25 14:52 Course Vital Signs Vital signs: Vital Signs Temperature 98.7 F 08/09/25 14:52 Pulse Rate 95 H 08/09/25 14:52 Respiratory Rate 12 08/09/25 14:52 Blood Pressure 171/99 H 08/09/25 14:52 Pulse Oximetry 100 08/09/25 14:52 Oxygen Delivery Method Room Air 08/09/25 14:52 Temperature 98.7 F 08/09/25 14:52 Pulse Rate 95 H 08/09/25 14:52 Respiratory Rate 12 08/09/25 14:52 Blood Pressure 171/99 H 08/09/25 14:52 Pulse Oximetry 100 08/09/25 14:52 Oxygen Delivery Method Room Air 08/09/25 14:52 Medical Decision Making MDM Narrative Medical decision making narrative: Patient presents with concerns of multiple scabbed skin sores she self admits to a history of some picking a infection in her left ear piercing with the piercing removed and a friend trying to poke the area to encourage drainage which the patient admits was not smart. Tetanus is up-to-date. Given isolated abscess in the left buttock nontoxic appearance of the patient incision and drainage was performed with patient's verbal consent. Her other skin lesions do not require any intervention at this time and we discussed that she must not try to pick at her scabs for optimal healing and recommended follow-up with her family doctor in 2 days for packing removal and potential discussion of skin washes given her symptoms. Patient agreeable to treatment plan and antibiotic as discussed with the risks benefits reviewed. She was medicated with Motrin for pain. She denies chance of . The patient is to followup with primary care physician in next 2 days for packing removal or to return to the emergency department should any of the signs or symptoms worsen or new symptoms develop. Patient had questions answered. The patient agrees with the following Diagnosis and Treatment plan and the patient will be discharged home. Patient was noted to have elevated blood pressure, she is on antihypertensive medication she reports compliance with this and is encouraged to have her blood pressure rechecked with her family doctor. Discharge Plan Discharge Chief Complaint: Skin/Abscess/Foreign Body Clinical Impression: Abscess and cellulitis of gluteal region Patient Disposition: Home, Self-Care Time of Disposition Decision: 15:40 Condition: Good Mode of Transportation: Private Vehicle Prescriptions / Home Meds: New ibuprofen 600 mg tablet 600 mg PO TID PRN (Reason: pain) Qty: 30 0RF mupirocin calcium 2 % cream 1 applic topical BID Qty: 30 1RF doxycycline hyclate 100 mg capsule 100 mg PO BID 10 Days Qty: 20 0RF No Action losartan 25 mg tablet 25 mg PO DAILY Print Language: Kosovan Instructions: Abscess Incision and Drainage (DC) Additional Instructions: Please contact your PCP for follow up in 2 days for packing removal.. Discuss recurrent skin infections. Take antibiotic to completion. No tanning while on medication/ careful with sun exposure Keep dressings over abscess dry to promote drainage. may need to soak in Epson salts bath. Referrals: Jose L López MD [Physician, General Surgery] - As needed Physician,Non-Staff, [Primary Care Provider] - As soon as possible Karen Ojeda NP [Physician] - As soon as possible Procedures ED ID Incision & Drainage Moderate Sedation Message Please read if using moderate sedation: Patient verbally consenting to incision and drainage procedure as discussed in layman's terms at the bedside. Incision and draining: A single layer of iodine was used to prep the area. Drapes were placed to ensure isolation of the abscess and surrounding skin tissue. A regional field block was performed with 1% Lidocaine. Incision was made with an 11 blade to the full dimension of the abscess, significant purulent material was expressed. The abscess was explored, the use of hemostats were used to break up the septum and loculations within the abscess. Plain, 0.25 packing was placed within the abscess. A dry sterile dressing was placed. Wound culture no obtained given localized abscess without concerning co morbitieis. Patient tolerated the procedure well and wound was dressed with gauze. Patient to to follow-up in the next 2 days with PCP or ED to have area evaluated.
[2025-08-09] MEDS: IBUPROFEN 600 MG TABLET PO (15:12)
[2025-08-09] MEDS: DOXYCYCLINE MONOHYDRATE 100 MG CAPSULE PO (15:13)
[2025-08-09] MEDS: LIDOCAINE HCL 1% 100 MG/10 ML MDV INJ (15:16)
== END 2025-08-09 15:53 | disposition home or self-care (01) ==
PROVIDERS: Emergency Provider Emergency Medicine
DX: L02.31 Cutaneous abscess of buttock (principal); L03.317 Cellulitis of buttock; L98.9 Disorder of the skin and subcutaneous tissue, unspecified
CPT/HCPCS: 10060; 99284

== ENCOUNTER 2025-08-13 05:11 | Emergency (ER) | payer OTHER, SELFPAY ==
--- OUTSIDE RECORDS SUMMARY | 2024-02-28 08:30 | XMS_ITS ---
Author Organization [facility] vices Address [address] [place] [phone] Care Team Providers Care Backup Operator Name Role Phone LiborioJackelyn davis [phone] REASON FOR VISIT Periodic Exam Social History Sex Assigned At : Social History Observation Description Sex Assigned At Female Encounters Encounter Location Date Provider Diagnosis [facility] [address] [place], [place] [id number] 02/28/2024 Jackelyn Solis Plan Of Treatment No Information Progress Notes * Diane CARNEY LDOB: (45 yo F)Acc No.[id number]:02/28/2024 Patient:Diane JADE :?Jackelyn Solis YOLANDADOB:1980???Age:43 Y ???Sex:FemaleDate:4Phone:[phone]:[address] [place], [place] [id number] Subjective: * Chief Complaints: * 1 . Periodic Exam. * Medical History: Objective: * Vitals: Assessment: Plan: * Treatment: * Billing Information: * Visit Code: * Procedure Codes: * Electronic signature of Jackelyn Solis DMD on 08/13/2025 at 05:20 AM ESTSign off status: Pending * Provider: Eugenia Solis DMD Date: 0 02/28/2024 Generated for Printing/Faxing/eTransmitting on:?08/13/2025 05:20 AM EST
--- OUTSIDE RECORDS SUMMARY | 2024-04-14 19:00 | XMS_ITS | Continuity of Care Document ---
Author Organization [facility] Address [address] [place] [address] Phone Care Team Providers Care Bow Rehairer Name Role Phone Yaima Andre Unavailable Unavailable [...] Known Problems Procedures Procedure Date Acute Detox Chairman And Chief Executive Officer Acute Detox Chairman And Chief Executive Officer Acute Detox Chairman And Chief Executive Officer DRUG TEST PRSMV DIR OPT OBS URINE TEST Acute Detox Chairman And Chief Executive Officer Acute Detox Chairman And Chief Executive Officer Acute Detox Chairman And Chief Executive Officer Acute Detox Chairman And Chief Executive Officer Acute Detox Chairman And Chief Executive Officer RAPID STI Chalm/Gonorr/Trich OFFICE/OUTPATIENT VISIT, NEW DIAST BP 80-89 MM HG SYST BP >=130-139MM HG MED LIST DOCD IN [facility] RVW MEDS BY RX/DR IN [facility] PT TOBACCO USE DONE RCVD TLK Pos clin depres scrn f/u doc ROUTINE VENIPUNCTURE DRUG TEST PRSMV DIR OPT OBS Acute Detox Chairman And Chief Executive Officer ROUTINE VENIPUNCTURE DRUG TEST PRSMV DIR OPT OBS URINE TEST Acute Detox Chairman And Chief Executive Officer Acute Detox Chairman And Chief Executive Officer Acute Detox Chairman And Chief Executive Officer Acute Detox Chairman And Chief Executive Officer DRUG TEST PRSMV DIR OPT OBS Acute Detox Chairman And Chief Executive Officer Acute Detox Chairman And Chief Executive Officer ROUTINE VENIPUNCTURE DRUG TEST PRSMV DIR OPT OBS ASSAY OF BREATH ETHANOL URINE TEST Acute Detox Chairman And Chief Executive Officer Alcohol and/or drug services- Acute Deto x [...] Diagnoses Date Provider Providers Copied on Encounter [facility], [address] [place] [address], [id number] , [place] tel: [phone] [facility] Detox No Information 4 Thai Erwin. [address] [place] [address], [id number] , [place]. tel: [phone] [facility], [address] [place] [address], [id number] , tel: [phone] [facility] No Information 4 Klidas Yaima. [address] [place], [place], [id number] , [place]. tel: [phone] [facility], [address], [place], [id number] , [place] tel: [phone] [facility] No Information 4 Klidas Yaima. [address], [place], [id number] , [place]. tel: [phone] [facility], [address], [place], [id number] , [place] tel: [phone] [facility] No Information 4 Klidas Yaima. [address], [place], [id number] , [place]. tel: [phone] [facility], [address] [place] [address], [id number] , [place] tel: [phone] [facility] No Information 4 Klidas Yaima. [address] [place], [place], [id number] , [place]. tel: [phone] [facility], [address], [place], [id number] , [place] tel: [phone] [facility] No Information 4 Klidas Yaima. [address] [place] [address], [id number] , [place]. tel: [phone] [facility], [address], [place], [id number] , [place] tel: [phone] [facility] No Information 4 Klidas Yaima. [address] [place] [address], [id number] , [place]. tel: [phone] [facility], [address] [place] [address], [id number] , [place] tel: [phone] [facility] No Information 4 Kristyn Urban. [address] [place] [address], [id number], [place]. tel: [phone] OFFICE/OUTPA TIENT VISIT, [facility], [address], [place], [id number] , [place] tel: [phone] [facility] STI screening (chief complaint)v aginal discharge/i tching (chief complaint) Alcohol dependence with withdrawal, uncomplicatedCocaine dependence with withdrawalVaginal odor 4 Ko Jhaveri. [address], [place], [id number] , [place]. tel: [phone] [facility], [address], [place], [address] , [place] tel: [phone] [facility] No Information 4 Klidas Yaima. [address] [place] [address], [id number] , [place]. tel: [phone] [facility], [address], [place], [id number] , [place] tel: [phone] [facility] No Information 4 Klidas Yaima. [address] [place] [address], [id number] , [place]. tel: [phone] [facility], [address], [place], [id number] , [place] tel: [phone] [facility] No Information 4 Klidas Yaima. [address], [place], [id number] , [place]. tel: [phone] [facility], [address], [place], [id number] , [place] tel: [phone] [facility] No Information 0- 4 Klidas Yaima. [address] [place] [address], [id number] , [place]. tel: [phone] [facility], [address] [place] [address], [id number] , [place] tel: [phone] [facility] No Information 0 4 Klidas Yaima. [address] [place] [address] [place], [id number] , [place]. tel: [phone] [facility], [address], [place], [id number] , [place] tel: [phone] [facility] No Information Apr-0 8-202 4 Klidas Yaima. [address], [place], [id number] , [place]. tel: [phone] [facility], [address], [place], [address] , [place] tel: [phone] [facility] No Information Apr-0 7-202 4 Klidas Yaima. [address], [place], [id number] , [place]. tel: [phone] [facility], [address], [place], [id number] , [place] tel: [phone] [facility] No Information Apr-0 6-202 4 Klidas Yaima. [address], [place], [id number] , [place]. tel: [phone] [facility], [address], [place], [address] , [place] tel: [phone] [facility] Alcohol dependence with withdrawal, uncomplicated Mar-2 4-201 9 Visci DO Adrian. [address], [place], [id number] , [place]. tel: [phone] [facility], [address], [place], [id number] , [place] tel: [phone] [facility] Alcohol dependence with withdrawal, uncomplicated Mar-2 3-201 9 Visci DO Adrian. [address] [place], [place], [id number] , [place]. tel: [phone] [facility], [address], [place], [id number] , [place] tel: [phone] [facility] Alcohol dependence with withdrawal, uncomplicated Mar-2 2-201 9 Visci DO Adrian. [address], [place], [id number] , [place]. tel: [phone] [facility], [address], [place], [address] , [place] tel: [phone] [facility] Alcohol dependence with withdrawal, uncomplicated Dec-2 9 Viscdeidre Cerna. [address], [place], [id number] , [place]. tel: [phone] [facility], [address], [place], [id number] , [place] tel: [phone] [facility] Alcohol dependence with withdrawal, uncomplicated Dec-2 0-201 9 Elias Cerna. [address], [place], [id number] , [place]. tel: [phone] [facility], [address], [place], [id number] , [place] tel: [phone] [facility] alcohol dependence (chief complaint) Alcohol dependence with withdrawal, uncomplicated Dec- 9 Toni Bender. [address], [place], [id number] , [place]. tel: [phone] [facility], [address], [place], [id number] , [place] tel: [phone] [facility] Alcohol dependence with withdrawal, uncomplicatedEncount er for test, result negative 9 [facility] [address], [place], [id number] , [place]. tel: [phone] Family History Family Member Type Diagnosis Age At Onset Father Problem Hypertension Mother Problem Alcoholism Father Problem Hypercholesterolemia Problem (finding) Family history of malignant neoplasm of bone Brother Problem Alcoholism Problem (finding) Family history of cance r of colon Mother Problem Depression Payers Payer name Insurance type Covered constitution party ID Authoriza tilamin(s) [employer] M edicaid 0223 [id number] Social History Type Description Quantity Date Captured [...] screening Pt is current cl ient of [facility] detox center. She reported to staff that [...]
[2025-08-13 05:15] VITALS: BP 184/118; PULSE 94; TEMP 36.8; O2SAT 99; BMI 22.6
--- OUTSIDE RECORDS SUMMARY | 2025-08-13 05:20 | XMS_ITS | Clinical Summary ---
Author Organization [facility] Address [address] [place] [address] Care Team Providers Care Case Aide Name Role Phone Candida Miller MD Primary Care Provider [phone] Encounters DateTypeDepartmentCare XewnUjoeeuxjume95/02/2025Travelfrom Last 3 Months Social History Tobacco UseTypesPacks/DayYears UsedDateSmoking Tobacco: Never Assessed CommentsUnknownSex and Gender InformationValueDate RecordedSex Assigned at Not on fileLegal GggFekrjh15/15/2023 7:46 PM EDTGender IdentityNot on fileSexual OrientationNot on file Last Filed Vital Signs Vital SignReadingTime TakenCommentsBlood Kmciiefd928/8006 12:00 PM EDT Pulse--Temperature--Respiratory Rate--Oxygen Saturation--Inhaled Oxygen Concentration--Topkjp05.4 kg (131 lb)05/05/2019 12:00 PM MKMApkspq930.6 cm (5' 6 )05/05/2019 12:00 PM EDTBody Mass Index21.1407 12:00 PM EDT Plan of Treatment Health MaintenanceDue DateLast DoneCommentsPneumococcal Vaccine: Pediatrics (0 to 5 Years) and At-Risk Patients (6 to 64 Years) (1 of 2 - PCV)2000Pap Smear2002Cervical Cancer Woigjwjom19/29/2024HPV/Dfyvfs44 Zhjcmrszj98/, 10/18/2022OVID-19 Vaccine ( season) 2025Influenza Vaccine (#1)/, 08/08/2018, 10/25/2017, Additional history exists Procedures Procedure NamePriorityDate/TimeAssociated DiagnosisCommentsQ - THINPREP(R) TIS W/RFL HPV MRNA E6/S1Irvbtcc39/29/2019 from Last 3 Months or Most Recently [...] was manually screened according to routine procedures. JUNIOR ACCOUNT MANAGER:SEE NOTENOMS LEGACY EXTERNAL LABComment: BRANDON HEDRICK(ASCP) CT screening location: [place] [address]. COMMENTSEE NOTENOMS LEGACY EXTERNAL LABComment: EXPLANATORY NOTE: [...] Time05/05/2019 Narrative Authorizing ProviderResult TypeResult StatusValeriglen Jensen CNMER[facility] HOSPITALW LABSFinal ResultPerforming OrganizationAddressCity/State/ZIP CodePhone Number [facility] from Last 3 Months or Most Recently Relevant to Health Maintenance Insurance Care Teams Team MemberRelationshipSpecialtyStart DateEnd Date Candida Miller MD [address] [place] [address] PCP - GeneralFamily Medicine02/13/23
--- OUTSIDE RECORDS SUMMARY | 2025-08-13 05:20 | XMS_ITS | Patient Health Record ---
Author Organization [facility] [place] Address [address] [place] [address] Care Team Providers Care Key Ringer Name Role Phone None, Unknown or Primary [...] [place] [address] [place] [id number] Donya Foleyelf - patient is the [id number] 2022
--- OUTSIDE RECORDS SUMMARY | 2025-08-13 05:20 | XMS_ITS | Clinical Summary ---
Author Organization [facility] Address [id number] [address] [place] [address] Care Team Providers Care Front Desk Specialist Name Role Phone No Pcp, No Pcp Primary Care Provider Unavailabl e Allergies Active AllergyReactionsCriticalityNoted DateCommentsNitrofurantoin Monohyd/M-IpvqvIenuriul48/14/2023 Medications MedicationSigDispense QuantityRefillsLast FilledStart DateEnd DateStatus ibuprofen (MOTRIN) 600 mg tablet Take 1 tablet (600 mg total) by mouth every 6 (six) hours as needed for pain. 30 tablet 5Active acetaminophen (TYLENOL EXTRA STRENGTH) 500 mg tablet Take 2 tablets (1,000 mg total) by mouth every 6 (six) hours as needed for pain or fever. 30 tablet 5Active Active Problems ProblemNoted DateDiagnosed DateVaginal fbnfxiaq60/02/2025History of depression 10/09/2024History of alcohol abuse10/09/2024History of drug abuse10/09/2024 Primary zojqhrozqwzx87/02/2025Left elbow pain06/06/20249484Fxagkasasxzg43/30/2024 Ypiyvokkydbkcq35/29/2720Juxhanm53/29/3045Bpydeeevlict59/29/8494Xvlxnv14/29/2024 Arm pztlyggb11/28/2023Left-sided dlydfmtf73/27/2023Hematuria, gross03/01/2022 Overview (03/01/2022): ==== 03/01/2022 ==== painless gross hematuria. Twenty-two year history of smoking. At most 1.5 pack per day. Plan: hematuria evaluation. Noncontrast CT renal bladder ultrasound cystoscopy bladder irrigation [employer] [place] bladder solution retrograde pyelogram Assessment & Plan [...] acknowledges this and agrees. Recurrent urinary tract vycphitjg58/02/2022Moderate episode of recurrent major depressive buzgnwsv30/18/2022lcohol aqvzciuflb08/30/2059Ocjptxcijds43/14/2021 Opvruhe7809/22/2020 Overview (03/01/2022): ==== 03/01/2022 ==== did have E coli UTI. Will perform cystoscopy [facility] bladder solution. Probable cranberry supplementation self [...] is not able to get in with retail loan originator assistant right away and is requesting prescription for me today.I did send in prescription but advised that she check in with retail loan originator assistant. She is also requesting that we send her urine for gonorrhea/chlamydia. To be safe, I will also send for culture. We will notify her of all the results via LiveQoS. Assessment & Plan (09/22/2020 12:14 PM EST): Of note, she is menstruating. If UA does dip for blood but negative for infection, we may just recheck in the short-term. Further management will be based on test results and how she does. If symptoms persist, we will need to set her up for cystoscopy/[facility] instillation History of kidney ulpnej1009/22/2020 Overview (03/01/2022): ==== 03/01/2022 ==== will see [...] will notify her of the results via K[employer] Capturet. If pain persists, we could pursue additional [...] Preservative Free, Quad10/25/2017 Influenza, Injectable, quadrivalent (PF)12/19/2020,08/08/2018Pneumococcal Cssrxjamyvpbgh38/14/2021 Family History Medical HistoryRelationNameCommentsHyperlipidemiaFatherHypertensionFatherRheum arthritisFatherCancerMotherintestinalColon cancerMotherDiverticulosisMother CancerSisterskin cancerBreast cancerNeg HxRelationNameStatusCommentsFatherAlive MotherAliveSisterAliveSonMichael KennedyAlive Social History Tobacco UseTypesPacks/DayYears UsedDateSmoking Tobacco: FormerCigarettes0.322 Smokeless Tobacco: Never Tobacco Cessation:Counseling Given: Not Answered Comments:not interested in quitting Alcohol UseStandard Drinks/WeekCommentsNot Currently0 (1 standard drink = 0.6 oz pure alcohol)occasion mixed drinksAHC UtilitiesAnswerDate RecordedIn the past 12 months has the [employer], gas, oil, or water Ogone threatened to shut off services in your home?No10/09/2024Social Connection and Isolation PanelAnswer Date RecordedIn a typical week, how many times do you talk on the phone with family, friends, or neighbors?Once a week10/09/2024How often do you get together with friends or relatives?Once a week10/09/2024How often do you attend episcopal or cheondoism services?Never10/09/2024Do you belong to any clubs or organizations such as episcopal groups, unions, fraternal or athletic groups, or school groups? Yes10/09/2024How often do you attend meetings of the clubs or organizations you belong to?More than 4 times per year10/09/2024re you , , , , never , or living with a partner?Akgvocgm01/02/2025 AUDIT-CAnswerDate RecordedQ1: How often do you have [...] medical care, and heating?Very hard10/09/2024PHQ-2 AnswerDate RecordedTotal Rxltq981Finjordan [facility] [place] of Occupational Health - Occupational Stress QuestionnaireAnswerDate [...] of a household?No10/09/2024hildcareAnswerDate RecordedDo problems getting child & adolescent psychiatrist make it difficult for you to work [...] have received?Associate degree: occupational, technical, or vocational mwbncju1704/11/2022CommentsNoSex and Gender InformationValueDate RecordedSex Assigned at BirthNot on fileLegal DbwYibvoq63/06/2015 11:26 AM EDTGender VydwhjuiCsjoao29/02/2025 5:33 PM EST Sexual YipmmqtjszpUguwofif53/02/2025 5:33 PM EST Last Filed Vital Signs Vital SignReadingTime TakenCommentsBlood Njkfmzxz829/8810/24/2024 9:25 AM EST Peulx510110/24/2024 9:25 AM HISUqxfxsvritc77.8 ??C (98.2 ??F)10/10/2024 12:02 PM ESTRespiratory Nbod577310/10/2024 12:02 PM ESTOxygen Llhmiswfeb64%10/10/2024 1:00 PM ESTInhaled Oxygen Concentration--Mzplgl28.8 kg (156 lb)10/24/2024 9:25 AM EST Slirco384.6 cm (5' 6 )10/24/2024 9:25 AM ESTBody Mass Index25.18010/24/2024 9:25 AM EST Plan of Treatment Health MaintenanceDue DateLast DoneCommentsAdult BMI Follow Up Plan1999 DTaP,Tdap and Td Vaccines (1 - Tdap)2000Pap Smear2002Influenza Nolmmdg30/, 08/08/2018, 10/25/2017, Additional history exists Depression Zstjngfqf95/dult BMI Pggpmbzbs32/ Tobacco Ensptznrc17/0567Aphclwswo13/23/202604/, 01/29/2024, 10/18/2022 Goals GoalPatient Goal TypeAssociated ProblemsRecent ProgressPatient-Stated?Author home with self care Monae Aguayo, REBECCA Note: Evaluation of progress towards goal: Home with self care. Medical Devices Not on file Procedures Procedure NamePriorityDate/TimeAssociated DiagnosisCommentsMAMM DIAGNOSTIC BILATERAL W BHWHgwdrwu93/23/2024 3:00 PM EDT Breast lump on left [...] Bilateral Breast Ultrasound, Limited TECHNIQUE: Multiple real-time ele-scale images of the bilateral breastswere performed. Color [...] 1 YR Authorizing ProviderResult TypeResult Statusama Sandoval DATA MINING ANALYST-CNPIMG MAMMOGRAPHY ORDERABLESFinal Result from Last 3 Months or Most Recently Relevant to Health Maintenance Insurance * Guarantor: COLIN ASCENCIO COAccount TypeRelation to PatientDate of BirthPhone Billing AddressCorporateOther [address] [place] [address] Advance Directives * Full Code (Latest Code [...] DateEnd Date No [place] [id number] [facility]
--- OUTSIDE RECORDS SUMMARY | 2025-08-13 05:20 | XMS_ITS | Encounter Summary ---
Author Organization [facility] Address [address] [place] [address] Care Team Providers Care Supervisor Type Bar And Segment Name Role Phone Candida Miller MD Primary Care Provider [phone] Encounter Details DateTypeDepartmentCare Team (Latest Contact Info)Vtadofzdcsq93/02/2025Travel Social History Tobacco UseTypesPacks/DayYears UsedDateSmoking Tobacco: Never Assessed CommentsUnknownSex and Gender InformationValueDate RecordedSex Assigned at Not on fileLegal VeiNfnmmo83/15/2023 7:46 PM EDTGender IdentityNot on fileSexual OrientationNot on filedocumented as of this encounter Plan of Treatment Not on file documented as of this encounter Visit Diagnoses Not on filedocumented in this encounter Care Teams Team MemberRelationshipSpecialtyStart DateEnd Date Candida Miller MD [address] [place] [address] PCP - GeneralFamily Medicine02/13/23documented as of this encounter
--- OUTSIDE RECORDS SUMMARY | 2025-08-13 05:20 | XMS_ITS | Clinical Summary ---
Author Organization [facility] Address [address], [address] [place] [address] Care Team Providers Care Podiatrist Assistant Name Role Phone Unavailable Primary Care Provider [...] ValueDate RecordedSex Assigned at BirthNot on fileLegal GgpEvtntl92/09/2013 5:55 AM ESTGender IdentityNot on fileSexual OrientationNot on file Last Filed Vital Signs Vital SignReadingTime TakenCommentsBlood Sqnetrtv945/8410/07/2012 1:23 PM EST Qaozl946110/07/2012 1:23 PM BXHYzbyxygelay47.9 ??C (98.4 ??F)10/07/2012 1:23 PM ESTRespiratory Nhsk0877 1:23 PM ESTOxygen Fohsbeaica07%10/07/2012 1:23 PM ESTInhaled Oxygen Concentration--Drghng34.9 kg (132 lb)10/07/2012 1:26 PM EST Fxnlzz276.6 cm (5' 6 )10/07/2012 1:26 PM ESTBody [...]
--- NOTE | 2025-08-13 05:45 | ED_ITS ---
HPI - Skin/Abscess/Foreign Bdy General Chief complaint: Skin/Abscess/Foreign Body Stated complaint: localized swelling - back of leg Time Seen by Provider: 08/13/25 05:15 Source: patient Mode of arrival: walk-in Limitations: no limitations History of Present Illness HPI narrative: This 45-year-old female who was seen here on August 09 for an abscess at the crease of her right buttock/thigh presents for evaluation. She is concerned that the abscess is infected. She had it incised and drained on Sunday and was prescribed doxycycline which she states she has been taking but it is causing vaginal itching/yeast infection symptoms. She has a picture on her phone of the area on Sunday prior to it being opened up where it was markedly erythematous with local cellulitis. The patient states the lump that she had back there at that time was the size of a golf ball. It is now open and draining a small amount of yellow drainage but the erythema on her skin has resolved and there is only a small amount of local induration. She has not had any fever. She does not have any other skin concerns at this time. Related Data Home Medications ?Medication ?Instructions ?Recorded ?Confirmed losartan 25 mg tablet 25 mg PO DAILY 07/17/2504/01 Previous Rx's ?Medication ?Instructions ?Recorded doxycycline hyclate 100 mg capsule 100 mg PO BID 10 da ys #20 caps 08/09/25 ibuprofen 600 mg tablet 600 mg PO TID PRN pain #30 t abs 08/09/25 mupirocin calcium 2 % topical cream 1 applic topical B ID #30 grams 08/09/25 Allergies Allergy/AdvReac Type Severity Reaction Status Date / Time nitrofurantoin (From Allergy Unknown Swelling Verified 08/13/25 05:18 Macrobid) of Lip/Tongue/Throat Review of Systems ROS Status of ROS 10 or more systems reviewed and unremark able except as noted in history and below PFSH PFSH Social History Little interest or pleasure in doing things: not at all Feeling down, depressed, or hopeless: not at all Exam Narrative Exam Narrative: Vital signs and Nursing Notes reviewed: Patient is afebrile with normal pulse, blood pressure is elevated at 184/118, patient admits she has not taken her blood pressure medication today, she is not hypoxic with pulse ox of 99% on room air General: Awake, alert, oriented, no acute distress, lying comfortably on the stretcher HEENT: Normocephalic atraumatic, mucous membranes are moist and pink, eyes are clear, normal conjunctiva, vision is grossly intact Chest: Lungs are clear to auscultation with good air entry, there is no wheezing rhonchi or rales appreciated no accessory muscle use, patient is speaking in complete sentences-no chest wall tenderness to palpation CVS: Regular rate and rhythm S1-S2, no murmurs rubs or gallops, pulses are brisk and equal bilaterally Extremities: Moving all extremities, no lower extremity tenderness or swelling noted, negative Homans' sign, pulses are brisk and equal bilaterally Skin: Several sores are noted on the patient's hands and legs, these are significantly improved from last month when I saw her. She has an approximately 0.75 cm open area at the crease of her right buttock and upper thigh where the abscess was incised and drained several days ago. There is no local erythema or sign of extension of this. There is a local induration consistent with a resolving abscess. There was no drainage with expression of the area but a small amount of yellow drainage was present on the gauze that was overlying the open area. Neuro: No focal deficits Constitutional Vital Signs, click to edit/add: Last Vital Signs Temp 98.2 F 08/13/25 05:15 Pulse 94 H 08/13/25 05:15 Resp 18 08/13/25 05:15 BP 184/118 H 08/13/25 05:15 Pulse Ox 99 08/13/25 05:15 O2 Del Method Room Air 08/13/25 05:15 Course Vital Signs Vital signs: Vital Signs Temperature 98.2 F 08/13/25 05:15 Pulse Rate 94 H 08/13/25 05:15 Respiratory Rate 18 08/13/25 05:15 Blood Pressure 184/118 H 08/13/25 05:15 Pulse Oximetry 99 08/13/25 05:15 Oxygen Delivery Method Room Air 08/13/25 05:15 Temperature 98.2 F 08/13/25 05:15 Pulse Rate 94 H 08/13/25 05:15 Respiratory Rate 18 08/13/25 05:15 Blood Pressure 184/118 H 08/13/25 05:15 Pulse Oximetry 99 08/13/25 05:15 Oxygen Delivery Method Room Air 08/13/25 05:15 MDM - Skin/Abscess/Foreign Bdy MDM Narrative Medical decision making narrative: This 45-year-old female presents for evaluation of an abscess that was opened up on August 09. It appears to be improving. It was packed but the packing fell out. She has a picture on her phone of what it looked like prior to the incision and drainage. It is now much improved with mild induration but no local cellulitis or extension of the infection. She was encouraged to continue doing warm Epsom salt baths and continue her antibiotics. She also states that the antibiotics are causing her to have a yeast infection and request Monistat for the yeast infection. She was given gauze and paper tape for future dressing changes and a prescription for Monistat was given to her at the time of discharge. She was instructed to go home and take her blood pressure medication as it is markedly elevated at triage. Discharge Plan Discharge Chief Complaint: Skin/Abscess/Foreign Body Clinical Impression: Wound check, abscess, Vaginitis Patient Disposition: Home, Self-Care Time of Disposition Decision: 05:44 Condition: Good Prescriptions / Home Meds: No Action losartan 25 mg tablet 25 mg PO DAILY ibuprofen 600 mg tablet 600 mg PO TID PRN (Reason: pain) Qty: 30 0RF mupirocin calcium 2 % cream 1 applic topical BID Qty: 30 1RF doxycycline hyclate 100 mg capsule 100 mg PO BID 10 Days Qty: 20 0RF Print Language: Romansh Instructions: Vaginal Antibacterials (Into the vagina) (Fem pH, MetroGel- Vaginal,..., Yeast Infection (ED), Warm Compress or Soak (ED) Additional Instructions: Continue warm soaks and Epsom salt several times a day and daily dressings. Continue antibiotics until gone. Use Monistat as needed. Referrals: Physician,Non-Staff, MD [Primary Care Provider] - 1 week
[2025-08-13 05:58] VITALS: BP 175/100
== END 2025-08-13 06:01 | disposition home or self-care (01) ==
PROVIDERS: Emergency Provider Emergency Medicine
DX: L02.415 Cutaneous abscess of right lower limb (principal); N76.0 Acute vaginitis
CPT/HCPCS: 99283